=== PATIENT | female | born 1955 | race Two or more races ===

== ENCOUNTER 2020-02-12 10:51 | Outpatient (CLI) | payer OTHER | END 2020-02-12 11:02 | disposition home or self-care (01) | LOC: MAMO-SONO 10:51 | DX: E04.1 Nontoxic single thyroid nodule (principal); M17.0 Bilateral primary osteoarthritis of knee; Z12.31 Encounter for screening mammogram for malignant neoplasm of breast; M25.561 Pain in right knee; R51 Headache; R07.89 Other chest pain ==

== ENCOUNTER 2020-02-12 12:54 | Outpatient (CLI) | payer OTHER | END 2020-02-12 13:09 | disposition home or self-care (01) | LOC: NUCLEAR 12:54 | DX: M81.0 Age-related osteoporosis without current pathological fracture (principal) ==

== ENCOUNTER 2020-09-06 08:31 | Outpatient (CLI) | payer OTHER | END 2020-09-06 08:47 | disposition home or self-care (01) | LOC: RAD 08:31 | PROVIDERS: ATTEND Orthopaedic Surgery | DX: M25.561 Pain in right knee (principal); M25.562 Pain in left knee | CPT/HCPCS: 73721 ==

== ENCOUNTER 2020-10-21 11:54 | Outpatient (CLI) | payer OTHER | END 2020-10-21 11:57 | disposition home or self-care (01) | LOC: RAD 11:54 | PROVIDERS: ATTEND Internal Medicine | DX: R51.9 Headache, unspecified (principal) ==

== ENCOUNTER 2020-11-11 12:36 | Outpatient (CLI) | payer OTHER | END 2020-11-11 12:43 | disposition home or self-care (01) | LOC: MRI 12:36 | PROVIDERS: ATTEND Internal Medicine | DX: G93.89 Other specified disorders of brain (principal) | CPT/HCPCS: 70551 ==

== ENCOUNTER 2023-01-26 15:55 | Emergency (ER) | payer OTHER ==
[~2023-01-26] VITALS: Ht 165.1 cm; Wt 86.2 kg
[2023-01-26] MEDS ORDERED: SIMVASTATIN5 MG (16:21)
[2023-01-26] MEDS ORDERED: TIROSINT50 MCG PO (16:21)
== END 2023-01-26 20:32 | disposition home or self-care (01) ==
LOC: ER 15:55
PROVIDERS: General Practice
DX: R55 Syncope and collapse (principal); R53.1 Weakness
CPT/HCPCS: 36415; 70450; 96365; 96366; 99284; J7030